=== PATIENT | male | born 2000 | race Caucasian/White ===

== ENCOUNTER 2018-06-11 11:52 | Day surgery (SDC) | payer BC ==
[2018-06-10 13:32] VITALS: BMI 24.3
[2018-06-11] MEDS ORDERED: Oxymetazoline HCl 0.05% ( 15 ML ) ONE ×2 (12:29→13:40)
[2018-06-11] MEDS ORDERED: Midazolam HCl 2 mg/2 ml Vial ONE ×2 (12:52→13:47)
[2018-06-11] MEDS ORDERED: Lidocaine 1% w/Epinephrine 1:100K 30 ML VIAL ONE (13:40)
[2018-06-11] MEDS ORDERED: Bacitracin Zinc Ointment 30 gm TUBE ONE (13:40)
[2018-06-11] MEDS ORDERED: Fentanyl 100 MCG/2 ML VIAL ONE ×2 (13:47→14:36)
[2018-06-11] MEDS ORDERED: PROPOFOL 200 MG/20 ML VIAL ONE (14:33)
[2018-06-11] MEDS ORDERED: Dexamethasone 20 MG/5 ML VIAL ONE (14:33)
[2018-06-11] MEDS ORDERED: Ondansetron PF 4 MG/2 ML Vial ONE (14:33)
[2018-06-11] MEDS ORDERED: Lidocaine 1% PF 5 ML VIAL ONE (14:33)
[2018-06-11] MEDS ORDERED: HYDROmorphone 2 MG/ML VIAL ONE (14:41)
--- NOTE | 2018-06-11 14:51 | OP ---
PREOPERATIVE DIAGNOSES: 1. Open depressed comminuted nasal fracture. 2. 5 cm nasal laceration. POSTOPERATIVE DIAGNOSES: 1. Open depressed comminuted nasal fracture. 2. 5 cm nasal laceration. PROCEDURE PERFORMED: Closed reduction of the open nasal fracture with complex closure, 5 cm open lac eration with internal and external splinting. PROCEDURE IN DETAIL: After consent was obtained, the patient was identified, brought to the operatin g room and placed on the operating table in supine position. Previous incision was cleaned and debri ded and reapproximated at 2 levels with Monocryl used to close the deep tissues and 6-0 Prolene for t he skin. Sterile dressing was then applied and we worked on reducing the depressed nasal fracture. Bones were replaced and an internal splint was secured to the caudal septum. An external splint was then placed. A Vasiliy splint was then placed to keep the bony fragments in place. The anterior nasa l bone was reduced using Gelfoam. The patient was then awakened and taken to recovery where she mariam ined in stable condition prior to discharge home.
[2018-06-11] MEDS ORDERED: Morphine 4 MG/ML VIAL ONE (15:18)
[2018-06-11] MEDS ORDERED: Hydrocodone-Acetamin 15 ML UDCUP ONE (16:05)
== END 2018-06-11 16:45 | disposition home or self-care (01) ==
LOC: SDC 11:52
PROVIDERS: ATTEND Specialist
PROC: 0JQ10ZZ Repair Face Subcutaneous Tissue and Fascia, Open Approach (ICD-10-PCS; principal; 2018-06-11)
PROC: 0NSBXZZ Reposition Nasal Bone, External Approach (ICD-10-PCS; principal; 2018-06-11)
DX: S02.2XXA Fracture of nasal bones, initial encounter for closed fracture (principal); S01.21XA Laceration without foreign body of nose, initial encounter; F98.8 Other specified behavioral and emotional disorders with onset usually occurring in childhood and adolescence; Z79.899 Other long term (current) drug therapy; V89.2XXA Person injured in unspecified motor-vehicle accident, traffic, initial encounter
CPT/HCPCS: 96374; 96375; J1100; J1170; J2001; J2250; J2270; J2405; J2704; J3010